=== PATIENT | female | born 1970 | race Two or more races ===

== ENCOUNTER → 2020-10-28 | Day surgery (SDC) | payer OTHER | END | disposition home or self-care (01) | LOC: ADM 10-21 15:15 → AMB-ENDOS 12:00 | PROVIDERS: ATTEND Surgery | DX: K62.89 Other specified diseases of anus and rectum (principal); K64.8 Other hemorrhoids; Z20.822 Contact with and (suspected) exposure to COVID-19 ==

== ENCOUNTER 2020-12-08 10:15 | Inpatient (IN) | payer OTHER ==
[~2020-12-08] VITALS: Ht 157.5 cm; Wt 73.5 kg
[2020-12-08] MEDS ORDERED: BIOTIN PO (12:37)
[2020-12-08] MEDS ORDERED: CRESTOR10 MG PO (12:38)
[2020-12-08] MEDS ORDERED: STOOL SOFTENER240 MG PO (12:40)
[2020-12-12] MEDS ORDERED: FAMOTIDINE20 MG (08:05)
[2020-12-12] MEDS ORDERED: BIOTIN1 MG PO (08:06)
[2020-12-15] MEDS ORDERED: HYOSCYAMINE0.125 M1 SL (10:13)
[2020-12-15] MEDS ORDERED: FAMOTIDINE20 MG PO (10:14)
[2020-12-15] MEDS ORDERED: DICLOFENAC SODI75 MG PO (10:14)
[2020-12-15] MEDS ORDERED: OXYC1TAB9 PO (10:14)
== END 2020-12-15 13:16 | disposition home or self-care (01) | DRG 331 ==
LOC: O/R 12-11 06:08 → SURH 12-11 08:45 → SURG 12-11 14:25
PROVIDERS: ADMIT Surgery; ATTEND Surgery
PROC: 0DBN4ZZ Excision of Sigmoid Colon, Percutaneous Endoscopic Approach (ICD-10-PCS; 2020-12-11)
PROC: 0DJD8ZZ Inspection of Lower Intestinal Tract, Via Natural or Artificial Opening Endoscopic (ICD-10-PCS; 2020-12-11)
PROC: 0DTP4ZZ Resection of Rectum, Percutaneous Endoscopic Approach (ICD-10-PCS; principal; 2020-12-11 08:45)
DX: K57.20 Diverticulitis of large intestine with perforation and abscess without bleeding (principal); E11.9 Type 2 diabetes mellitus without complications; Z79.4 Long term (current) use of insulin; F17.290 Nicotine dependence, other tobacco product, uncomplicated